=== PATIENT | female | born 1945 | race Hispanic/Latino ===

== ENCOUNTER 2018-05-25 13:30 | Outpatient (CLI) | payer MEDICARE, MEDICAID ==
--- NOTE | 2018-05-26 14:21 | MMO ---
BILATERAL SCREENING MAMMOGRAM: INDICATIONS: Annual exam. COMPARISON: 07/14/2013 FINDINGS: The interpretation of the examination was assisted with computer aided detection. The breast parenchyma is heterogeneously dense, which limits the sensitivity of mammography. There are vascular and benign appearing calcifications within the right and left breast. No new suspicious mass, cluster of microcalcification, or area of architectural distortion is evident . IMPRESSION: BI-RADS Category 2-Benign. Recommend routine annual mammographic screening. POS: ALICIA
== END 2018-05-25 13:31 | disposition home or self-care (01) ==
LOC: SCSMAMMO 13:30
PROVIDERS: ATTEND Family Medicine
DX: Z12.31 Encounter for screening mammogram for malignant neoplasm of breast (principal)
CPT/HCPCS: 77067

== ENCOUNTER 2019-01-17 14:25 | Outpatient (CLI) | payer MEDICARE, MEDICAID ==
--- NOTE | 2019-01-17 16:36 | MRI ---
MRI CERVICAL SPINE WITHOUT CONTRAST 01/17/19 HISTORY: Neck pain. COMPARISON: Cervical spine radiographs 12/22/17. FINDINGS: The cerebellar tonsils are normal at the foramen magnum. The cord signal was normal. No marrow infilt rative process. The paraspinal musculature is normal. The levels are as follows: T2-3: Mild disc desiccation. Mild facet arthropathy. No neural foraminal or spinal canal narrowing. T3-4: There is severe left and moderate sided facet arthropathy. There is grade I anterolisthesis of C2 over C3 approximately 10 mm. There is remodeling of the posterior disc due to the anterolisthesis with posterior disc osteophyte complexes in the subforaminal zones. There is severe left sided facet arthropathy. There is moderate to severe left and moderate right sided neural foraminal narrowing. Th e spinal canal measures approximately 9 mm. C4-5: There is a circumferential disc bulge. There is moderate to severe left sided facet arthropathy . The spinal canal measures over 1 cm. Moderate right and mild left sided neural foraminal narrowing due to uncinate process hypertrophy. C5-6: There is circumferential disc osteophyte complex. Moderate uncinate process hypertrophy. There is moderate to severe bilateral neural foraminal narrowing. The spinal canal at this level measures a pproximately 7 mm. C6-7: Circumferential disc osteophyte complex. Mild facet arthrosis. There is narrowing of the ventra l CSF space. Spinal canal measures approximately 7 mm. there is abutment of the ventral cord. Moderate to severe left and moderate right sided neural foraminal narrowing. IMPRESSION: Multilevel spondylosis as described. POS: ALICIA
== END 2019-01-17 14:26 | disposition home or self-care (01) ==
LOC: SCSMRI 14:25
PROVIDERS: ATTEND Family Medicine
DX: M54.2 Cervicalgia (principal); M47.812 Spondylosis without myelopathy or radiculopathy, cervical region
CPT/HCPCS: 72141

== ENCOUNTER 2022-06-11 22:54 | Emergency (ER) | payer OTHER | END 2022-06-12 00:50 | disposition home or self-care (01) | LOC: ERS 22:56 | DX: S06.0X9A Concussion with loss of consciousness of unspecified duration, initial encounter (principal); S40.011A Contusion of right shoulder, initial encounter; I25.10 Atherosclerotic heart disease of native coronary artery without angina pectoris; E11.9 Type 2 diabetes mellitus without complications; E03.9 Hypothyroidism, unspecified; K21.9 Gastro-esophageal reflux disease without esophagitis; E78.5 Hyperlipidemia, unspecified; E78.00 Pure hypercholesterolemia, unspecified; I10 Essential (primary) hypertension; I71.4 Abdominal aortic aneurysm, without rupture; Z87.01 Personal history of pneumonia (recurrent); Z95.828 Presence of other vascular implants and grafts; Z87.891 Personal history of nicotine dependence; Z79.82 Long term (current) use of aspirin; Z79.899 Other long term (current) drug therapy; W18.12XA Fall from or off toilet with subsequent striking against object, initial encounter; Y92.002 Bathroom of unspecified non-institutional (private) residence as the place of occurrence of the external cause | CPT/HCPCS: 70450; 71045; 72125; 93005 ==

== ENCOUNTER 2022-08-05 13:21 | Outpatient (CLI) | payer OTHER | END 2022-08-05 13:22 | disposition home or self-care (01) | LOC: BICULT 13:21 | PROVIDERS: ATTEND Internal Medicine Cardiovascular Disease | DX: E04.1 Nontoxic single thyroid nodule (principal) | CPT/HCPCS: 76536 ==

== ENCOUNTER 2023-02-27 13:00 | Observation (INO) | payer OTHER ==
[~2023-02-27 13:00] MED LIST: Iopamidol-370 76% 500 ML MDV (1 ML CHARGE) ONE
[2023-02-27 13:26] LABS: #Eosinphils 0.3 thou/uL (0.0-0.7); #Lymphocytes 2.2 thou/uL (1.20-3.40); #Monocytes 0.4 thou/uL (0.11-0.59); #Neutrophils 3.1 thou/uL (1.40-6.50); %Basophils 0.1 % (0.0-1.0); %Eosinophils 4.6 % (0.0-10.0); %Monocytes 6.7 % (0.0-10.0); %Neutrophils 51.6 % (42.0-75.0); Hemoglobin 9.5 g/dL (12.0-16.0); Mean Corpuscular HGB CONC 35.7 g/dL (32.0-36.0); Mean Corpuscular Hemoglobin 33.7 pg (27.0-31.0); Mean Corpuscular Volume 94.5 fl (78.0-98.0); Mean Platelet Volume 7.5 fL (7.4-10.4); Platelet Count 207 10x3/uL (130-400); RBC Distribution Width 12.1 % (11.5-14.5); Red Blood Cell (RBC) Count 2.82 mill/uL (4.20-5.40)
[2023-02-27 13:35] LABS: INR-International Normal Ratio 1.1; PTT 28.2 sec (22.9-36.1); Prothrombin Time 14.7 sec (12.0-14.7)
[2023-02-27 13:43] LABS: ALT (SGPT) 11 U/L (8-55); AST (SGOT) 13 U/L (5-34); Albumin 3.6 g/dL (3.4-4.8); Alkaline Phosphatase 62 U/L (40-110); Anion Gap 14 mmol/L (10-20); BUN (Urea Nitrogen) 39 mg/dL (9.8-20.1); Bilirubin, Total 0.2 mg/dL (0.2-1.2); CK (CPK) 80 U/L (29-168); Calc. Creatinine Clearance 0 mL/min (70-130); Calcium 8.8 mg/dL (7.8-10.44); Carbon Dioxide 22 mmol/L (23-31); Chloride 107 mmol/L (98-107); Estimated GFR 18; Globulin 2.3 g/dL (2.4-3.5); Glucose 172 mg/dL (83-110); Potassium 4.2 mmol/L (3.5-5.1); Protein, Total 5.9 g/dL (5.8-8.1); Sodium 139 mmol/L (136-145)
[2023-02-27] MEDS ORDERED: Aspirin Chewable 81 MG TAB ONE (14:31)
[2023-02-27 15:38] LABS: Bilirubin Negative (Negative); Blood, Urine Negative (Negative); Clarity Clear (Clear); Glucose, Urine (Dipstick) Normal (Negative); Ketone, Urine Negative (Negative); Leukocyte Negative Leu/uL (Negative); Nitrite Negative (Negative); Protein, Urine (Dipstick) Negative (Neg-Trace); Specific Gravity, Urine 1.029 (1.002-1.036); Urobilinogen Normal mg/dL (Less than 2)
[2023-02-27] MEDS ORDERED: Ondansetron ODT 4 MG TAB SL PRN (16:30)
[2023-02-27] MEDS ORDERED: Ondansetron PF 4 MG/2 ML Vial IVP PRN (16:30)
[2023-02-27] MEDS ORDERED: Acetaminophen 325 MG TAB ONE (16:30)
[2023-02-27] MEDS ORDERED: Acetaminophen 325 MG TAB PO PRN (16:30)
[2023-02-27] MEDS: Lactated Ringer's 1,000 ML IV SCH (16:39)
[2023-02-27] MEDS ORDERED: Atorvastatin Calcium 40 MG TAB PO SCH (21:00)
[2023-02-28 01:27] VITALS: BMI 24.9
[2023-02-28] MEDS: Lactated Ringer's 1,000 ML IV SCH (03:50)
[2023-02-28 05:56] LABS: #Eosinphils 0.3 thou/uL (0.0-0.7); #Lymphocytes 2.4 thou/uL (1.20-3.40); #Monocytes 0.5 thou/uL (0.11-0.59); #Neutrophils 2.3 thou/uL (1.40-6.50); %Basophils 0.5 % (0.0-1.0); %Eosinophils 5.3 % (0.0-10.0); %Lymphocytes 43.7 % (21.0-51.0); %Monocytes 8.8 % (0.0-10.0); %Neutrophils 41.8 % (42.0-75.0); Mean Corpuscular HGB CONC 35.2 g/dL (32.0-36.0); Mean Corpuscular Hemoglobin 33.4 pg (27.0-31.0); Mean Corpuscular Volume 94.8 fl (78.0-98.0); Mean Platelet Volume 7.9 fL (7.4-10.4); Platelet Count 208 10x3/uL (130-400); Red Blood Cell (RBC) Count 2.99 mill/uL (4.20-5.40); White Blood Cell (WBC) Count 5.4 10x3/uL (4.8-10.8)
[2023-02-28 06:22] LABS: Anion Gap 14 mmol/L (10-20); BUN (Urea Nitrogen) 30 mg/dL (9.8-20.1); Calc. Creatinine Clearance 22 mL/min (70-130); Calcium 9.5 mg/dL (7.8-10.44); Carbon Dioxide 23 mmol/L (23-31); Chloride 111 mmol/L (98-107); Estimated GFR 26; Glucose 71 mg/dL (83-110); Potassium 4.1 mmol/L (3.5-5.1); Sodium 144 mmol/L (136-145)
[2023-02-28] MEDS ORDERED: glipiZIDE 10 MG TAB PO SCH (07:30)
[2023-02-28] MEDS ORDERED: Lactated Ringer's 1,000 ML IV SCH (07:30)
[2023-02-28] MEDS ORDERED: Dextrose 50% Abboject 50 ML SYRINGE SLOW IVP PRN (08:03)
[2023-02-28] MEDS ORDERED: HumaLOG 300 UNITS/3 ML VIAL SC PRN ×2 (08:03)
[2023-02-28] MEDS ORDERED: Dextrose 5% in Water 1,000 ML IV PRN (08:03)
[2023-02-28] MEDS ORDERED: Aspirin 325 mg Enteric Coated Tablet PO SCH (09:00)
[2023-02-28] MEDS ORDERED: Alogliptin 6.25 MG TAB PO SCH (09:00)
[2023-02-28] MEDS: Gabapentin 100 MG CAP PO SCH (09:09)
[2023-02-28] MEDS: Levothyroxine Sodium 100 MCG TAB PO SCH (09:10)
[2023-02-28] MEDS: Fenofibrate 48 MG TAB PO SCH (09:10)
[2023-02-28] MEDS ORDERED: Atorvastatin Calcium 40 MG TAB PO SCH (21:00)
[2023-03-01 05:23] LABS: #Eosinphils 0.3 thou/uL (0.0-0.7); #Lymphocytes 2.7 thou/uL (1.20-3.40); #Monocytes 0.6 thou/uL (0.11-0.59); #Neutrophils 2.5 thou/uL (1.40-6.50); %Basophils 0.6 % (0.0-1.0); %Eosinophils 5.3 % (0.0-10.0); %Lymphocytes 44.1 % (21.0-51.0); %Monocytes 8.9 % (0.0-10.0); %Neutrophils 41.1 % (42.0-75.0); Hemoglobin 10.4 g/dL (12.0-16.0); Mean Corpuscular HGB CONC 34.1 g/dL (32.0-36.0); Mean Corpuscular Hemoglobin 32.1 pg (27.0-31.0); Mean Corpuscular Volume 94.4 fl (78.0-98.0); Mean Platelet Volume 7.7 fL (7.4-10.4); Platelet Count 221 10x3/uL (130-400); RBC Distribution Width 12.1 % (11.5-14.5); Red Blood Cell (RBC) Count 3.24 mill/uL (4.20-5.40); White Blood Cell (WBC) Count 6.1 10x3/uL (4.8-10.8)
[2023-03-01 05:42] LABS: Anion Gap 13 mmol/L (10-20); BUN (Urea Nitrogen) 24 mg/dL (9.8-20.1); Calc. Creatinine Clearance 24 mL/min (70-130); Calcium 9.7 mg/dL (7.8-10.44); Carbon Dioxide 23 mmol/L (23-31); Chloride 109 mmol/L (98-107); Estimated GFR 28; Glucose 117 mg/dL (83-110); Potassium 4.1 mmol/L (3.5-5.1); Sodium 141 mmol/L (136-145)
[2023-03-01] MEDS ORDERED: Acetaminophen 500 MG TAB PO SCH (05:45)
[2023-03-01] MEDS ORDERED: Aspirin 81 mg Enteric Coated Tablet PO SCH (09:00)
[2023-03-01] MEDS ORDERED: Clopidogrel Bisulfate 75 MG TAB PO SCH (09:00)
[2023-03-01] MEDS: Fenofibrate 48 MG TAB PO SCH (09:01)
[2023-03-01] MEDS: Gabapentin 100 MG CAP PO SCH (09:01)
[2023-03-01] MEDS: Levothyroxine Sodium 100 MCG TAB PO SCH (09:01)
[2023-03-01 18:45] VITALS: BP 167/81; TEMP 97.4
[2023-03-01] MEDS ORDERED: Pantoprazole 40 MG VIAL IVP SCH (19:15)
[2023-03-06] MEDS ORDERED: Dulaglutide [Trulicity] 1.5 MG/0.5 ML Pen.Injctr SC SCH (09:00)
== END 2023-03-01 19:54 | disposition home or self-care (01) ==
LOC: ERS 13:00 → ERHOLD 15:13 → NEURO 19:24
PROVIDERS: ADMIT Family Medicine; ATTEND Family Medicine
DX: R47.81 Slurred speech (principal); R41.82 Altered mental status, unspecified; R20.0 Anesthesia of skin; I12.9 Hypertensive chronic kidney disease with stage 1 through stage 4 chronic kidney disease, or unspecified chronic kidney disease; E11.22 Type 2 diabetes mellitus with diabetic chronic kidney disease; N18.32 Chronic kidney disease, stage 3b; N17.9 Acute kidney failure, unspecified; D63.1 Anemia in chronic kidney disease; R91.8 Other nonspecific abnormal finding of lung field; E78.5 Hyperlipidemia, unspecified; E03.9 Hypothyroidism, unspecified; I25.10 Atherosclerotic heart disease of native coronary artery without angina pectoris; I73.9 Peripheral vascular disease, unspecified; I71.40 Abdominal aortic aneurysm, without rupture, unspecified; K21.9 Gastro-esophageal reflux disease without esophagitis; I65.22 Occlusion and stenosis of left carotid artery; I07.1 Rheumatic tricuspid insufficiency; G89.29 Other chronic pain; M25.562 Pain in left knee; M25.572 Pain in left ankle and joints of left foot; R07.9 Chest pain, unspecified; Z66 Do not resuscitate; Z86.73 Personal history of transient ischemic attack (TIA), and cerebral infarction without residual deficits; Z87.891 Personal history of nicotine dependence; Z79.82 Long term (current) use of aspirin; Z79.84 Long term (current) use of oral hypoglycemic drugs; Z79.890 Hormone replacement therapy; Z79.899 Other long term (current) drug therapy; Z95.820 Peripheral vascular angioplasty status with implants and grafts
CPT/HCPCS: 36415; 36416; 70450; 70496; 70498; 70551; 71045; 80048; 80053; 81003; 82550; 84484; 85025; 85610; 85730; 87086; 93005; 93010; 93306; 96374; C9113; G0378; J7120; Q9967

== ENCOUNTER 2023-07-01 06:58 | Outpatient (CLI) | payer OTHER | END 2023-07-01 06:59 | disposition home or self-care (01) | LOC: BICULT 06:58 | PROVIDERS: ATTEND Nurse Practitioner Family | DX: S30.0XXA Contusion of lower back and pelvis, initial encounter (principal); N28.1 Cyst of kidney, acquired; N28.89 Other specified disorders of kidney and ureter; N27.0 Small kidney, unilateral; Z90.49 Acquired absence of other specified parts of digestive tract | CPT/HCPCS: 76700; 76856 ==

== ENCOUNTER 2023-10-05 12:26 | Observation (INO) | payer OTHER ==
[2023-10-05 13:28] LABS: #Eosinphils 0.3 thou/uL (0.0-0.7); #Monocytes 0.5 thou/uL (0.11-0.59); %Basophils 0.5 % (0.0-1.0); %Eosinophils 4.7 % (0.0-10.0); %Lymphocytes 35.5 % (21.0-51.0); %Monocytes 7.8 % (0.0-10.0); %Neutrophils 51.3 % (42.0-75.0); Hematocrit 31.8 % (36.0-47.0); Mean Corpuscular HGB CONC 31.4 g/dL (32.0-36.0); Mean Corpuscular Hemoglobin 30.3 pg (27.0-31.0); Mean Corpuscular Volume 96.4 fl (78.0-98.0); Mean Platelet Volume 10.4 fL (7.4-10.4); Platelet Count 178 10x3/uL (130-400); RBC Distribution Width 13.7 % (11.5-14.5); White Blood Cell (WBC) Count 5.9 10x3/uL (4.8-10.8)
[2023-10-05 13:55] LABS: ALT (SGPT) 11 U/L (8-55); AST (SGOT) 13 U/L (5-34); Albumin 3.9 g/dL (3.4-4.8); Alkaline Phosphatase 74 U/L (40-110); Anion Gap 10 mmol/L (10-20); BUN (Urea Nitrogen) 21 mg/dL (9.8-20.1); Bilirubin, Total 0.3 mg/dL (0.2-1.2); Calc. Creatinine Clearance 0 mL/min (70-130); Calcium 9.6 mg/dL (7.8-10.44); Carbon Dioxide 26 mmol/L (23-31); Chloride 108 mmol/L (98-107); Estimated GFR 29; Globulin 2.9 g/dL (2.4-3.5); Glucose 156 mg/dL (83-110); Protein, Total 6.8 g/dL (5.8-8.1); Sodium 140 mmol/L (136-145)
[2023-10-05 13:56] LABS: Troponin I Less than 0.010 ng/mL (< 0.028)
[2023-10-05] MEDS ORDERED: Iopamidol-370 76% 500 ML MDV (1 ML CHARGE) ONE (13:56)
[2023-10-05] MEDS ORDERED: Morphine 4 MG/ML VIAL ONE (15:08)
[2023-10-05] MEDS ORDERED: Ondansetron PF 4 MG/2 ML Vial IVP PRN (16:55)
[2023-10-05] MEDS ORDERED: Calcium Carbonate 500 MG ChewTAB PO PRN (16:55)
[2023-10-05] MEDS ORDERED: Ondansetron ODT 4 MG TAB PO PRN (16:55)
[2023-10-05] MEDS ORDERED: Dextrose 5% in Water 1,000 ML IV PRN (17:08)
[2023-10-05] MEDS ORDERED: Glucagon 1 MG/ML KIT IM PRN (17:08)
[2023-10-05] MEDS ORDERED: HumaLOG 300 UNITS/3 ML VIAL SC PRN ×2 (17:08)
[2023-10-05] MEDS ORDERED: Dextrose 50% Abboject 50 ML SYRINGE SLOW IVP PRN (17:08)
[2023-10-05 17:15] LABS: Troponin I Less than 0.010 ng/mL (< 0.028)
[2023-10-05] MEDS: Losartan 25 MG TAB PO SCH (19:55)
[2023-10-05 20:58] LABS: Troponin I Less than 0.010 ng/mL (< 0.028)
[2023-10-05] MEDS ORDERED: Gabapentin 100 MG CAP PO SCH (21:00)
[2023-10-05] MEDS ORDERED: Carvedilol 25 MG TAB PO SCH (21:00)
[2023-10-05] MEDS ORDERED: Atorvastatin Calcium 40 MG TAB PO SCH (21:00)
[2023-10-05] MEDS ORDERED: hydrALAZINE 20 MG/ML VIAL SLOW IVP PRN (21:19)
[2023-10-05 21:43] VITALS: BMI 24.5
[2023-10-06 05:01] LABS: #Eosinphils 0.3 thou/uL (0.0-0.7); #Monocytes 0.5 thou/uL (0.11-0.59); #Neutrophils 2.8 thou/uL (1.40-6.50); %Basophils 0.5 % (0.0-1.0); %Eosinophils 4.9 % (0.0-10.0); %Lymphocytes 38.3 % (21.0-51.0); %Monocytes 7.8 % (0.0-10.0); %Neutrophils 48.3 % (42.0-75.0); Hematocrit 31.6 % (36.0-47.0); Hemoglobin 10.3 g/dL (12.0-16.0); Mean Corpuscular HGB CONC 32.6 g/dL (32.0-36.0); Mean Corpuscular Hemoglobin 30.4 pg (27.0-31.0); Mean Platelet Volume 10.7 fL (7.4-10.4); Platelet Count 179 10x3/uL (130-400); RBC Distribution Width 13.8 % (11.5-14.5); Red Blood Cell (RBC) Count 3.39 mill/uL (4.20-5.40); White Blood Cell (WBC) Count 5.8 10x3/uL (4.8-10.8)
[2023-10-06 05:05] LABS: Mean Corpuscular Volume 93.2 fl (78.0-98.0)
[2023-10-06 05:35] LABS: ALT (SGPT) 9 U/L (8-55); AST (SGOT) 12 U/L (5-34); Albumin 3.7 g/dL (3.4-4.8); Alkaline Phosphatase 64 U/L (40-110); Anion Gap 13 mmol/L (10-20); BUN (Urea Nitrogen) 19 mg/dL (9.8-20.1); Bilirubin, Total 0.4 mg/dL (0.2-1.2); Calc. Creatinine Clearance 26 mL/min (70-130); Calcium 9.7 mg/dL (7.8-10.44); Carbon Dioxide 25 mmol/L (23-31); Chloride 106 mmol/L (98-107); Estimated GFR 34; Globulin 2.8 g/dL (2.4-3.5); Glucose 88 mg/dL (83-110); Protein, Total 6.5 g/dL (5.8-8.1); Sodium 140 mmol/L (136-145)
[2023-10-06] MEDS ORDERED: Levothyroxine Sodium 100 MCG TAB PO SCH (06:00)
[2023-10-06] MEDS ORDERED: Clopidogrel Bisulfate 75 MG TAB PO SCH (09:00)
[2023-10-06] MEDS ORDERED: FLU VACC QS2023(65UP)/MF59C/PF 60 MCG/0.5 ML SYRINGE IM ONE (09:00)
[2023-10-06] MEDS ORDERED: Fenofibrate 48 MG TAB PO SCH (09:00)
[2023-10-06] MEDS ORDERED: Aspirin 81 mg Enteric Coated Tablet PO SCH (09:00)
[2023-10-06] MEDS ORDERED: glipiZIDE 10 MG TAB PO SCH (09:00)
[2023-10-06] MEDS: Losartan 25 MG TAB PO SCH (09:08)
[2023-10-06] MEDS ORDERED: Regadenoson 0.4 MG/5 ML SYRINGE ONE (13:31)
[2023-10-06] MEDS ORDERED: Acetaminophen 500 MG TAB PO PRN (14:04)
[2023-10-06] MEDS ORDERED: Acetaminophen 325 MG TAB PO SCH (14:15)
[2023-10-06 15:12] VITALS: BP 138/65; TEMP 98.4
[2023-10-09] MEDS ORDERED: Dulaglutide [Trulicity] 1.5 MG/0.5 ML Pen.Injctr SC SCH (09:00)
== END 2023-10-06 16:25 | disposition home or self-care (01) ==
LOC: ERS 12:26 → INTOOBSV 16:20 → ERHOLD 16:20 → 2NO 19:29
PROVIDERS: ADMIT Student in an Organized Health Care Education/Training Program; ATTEND Student in an Organized Health Care Education/Training Program
DX: I25.10 Atherosclerotic heart disease of native coronary artery without angina pectoris (principal); M47.816 Spondylosis without myelopathy or radiculopathy, lumbar region; R07.89 Other chest pain; E03.9 Hypothyroidism, unspecified; I12.9 Hypertensive chronic kidney disease with stage 1 through stage 4 chronic kidney disease, or unspecified chronic kidney disease; N18.9 Chronic kidney disease, unspecified; I71.40 Abdominal aortic aneurysm, without rupture, unspecified; E11.22 Type 2 diabetes mellitus with diabetic chronic kidney disease; I73.9 Peripheral vascular disease, unspecified; Z79.890 Hormone replacement therapy; Z79.899 Other long term (current) drug therapy; Z91.011 Allergy to milk products; Z79.82 Long term (current) use of aspirin; Z79.02 Long term (current) use of antithrombotics/antiplatelets; Z79.84 Long term (current) use of oral hypoglycemic drugs; Z79.4 Long term (current) use of insulin
CPT/HCPCS: 71045; 71275; 74174; 78452; 80053 ×2; 82962 ×2; 83880; 84484 ×2; 85025 ×2; 93005; 93017; 96372; 96374; 99285; A9500; G0378 ×3; J2785; 36415; 36416; J1650; J2270; Q9967

== ENCOUNTER 2024-01-10 12:05 | Outpatient (CLI) | payer OTHER ==
[2024-01-10 13:20] LABS: #Eosinphils 0.2 10x3/uL (0.0-0.5); #Monocytes 0.5 10x3/uL (0.0-1.1); #Neutrophils 3.3 10x3/uL (1.5-8.4); %Basophils 0.5 % (0.0-2.0); %Eosinophils 3.8 % (0.0-6.0); %Lymphocytes 35.4 % (18.0-47.0); %Monocytes 7.1 % (0.0-10.0); %Neutrophils 52.7 % (40.0-75.0); Hematocrit 33.8 % (34.9-44.5); Hemoglobin 11.3 g/dL (12.0-15.5); Mean Corpuscular HGB CONC 33.4 g/dL (32.0-36.0); Mean Corpuscular Hemoglobin 31.4 pg (27.0-33.0); Mean Corpuscular Volume 93.9 fl (81.6-98.3); Mean Platelet Volume 10.6 fl (7.4-10.4); Platelet Count 209 10x3/uL (150-450); RBC Distribution Width 12.9 % (11.5-14.5); White Blood Cell (WBC) Count 6.3 10x3/uL (3.5-10.5)
[2024-01-10 13:36] LABS: ALT (SGPT) 22 U/L (8-55); AST (SGOT) 24 U/L (5-34); Albumin 4.5 g/dL (3.4-4.8); Alkaline Phosphatase 90 U/L (40-110); Anion Gap 14 mmol/L (10-20); BUN (Urea Nitrogen) 29 mg/dL (9.8-20.1); Bilirubin, Total 0.5 mg/dL (0.2-1.2); Calc. Creatinine Clearance 0 mL/min (70-130); Calcium 9.9 mg/dL (7.8-10.44); Carbon Dioxide 24 mmol/L (23-31); Chloride 107 mmol/L (98-107); Estimated GFR 27; Globulin 2.5 g/dL (2.4-3.5); Glucose 168 mg/dL (83-110); Potassium 4.1 mmol/L (3.5-5.1); Sodium 141 mmol/L (136-145)
== END 2024-01-10 12:06 | disposition home or self-care (01) ==
LOC: LABBT 12:05
PROVIDERS: ATTEND Internal Medicine Cardiovascular Disease
DX: Z01.812 Encounter for preprocedural laboratory examination (principal)
CPT/HCPCS: 80053; 85025

== ENCOUNTER 2024-03-22 10:22 | Outpatient (CLI) | payer OTHER, MEDICAID | END 2024-03-22 10:23 | disposition home or self-care (01) | LOC: BICMRI 10:22 | PROVIDERS: ATTEND Student in an Organized Health Care Education/Training Program | DX: M47.26 Other spondylosis with radiculopathy, lumbar region (principal); M51.16 Intervertebral disc disorders with radiculopathy, lumbar region; M48.061 Spinal stenosis, lumbar region without neurogenic claudication | CPT/HCPCS: 72148 ==